=== PATIENT | male | born 1955 | race Caucasian/White ===

== ENCOUNTER 2017-04-25 06:58 | Observation (INO) | payer OTHER ==
[2017-04-23 09:03] LABS: BASOPHILS # (AUTO) 0.1 (0.0-0.1); BASOPHILS % 0.9 % (0.0-1.0); EOSINOPHILS # (AUTO) 0.1 (0.0-0.4); HEMATOCRIT 49.5 % (38.2-49.6); HEMOGLOBIN 16.9 g/dL (14.0-18.0); LYMPHOCYTES # (AUTO) 1.9 (1.0-3.2); LYMPHOCYTES % 23.7 % (18.0-39.1); MEAN CORPUSCULAR HEMOGLOBIN 32.6 pg (28-32); MEAN CORPUSCULAR HGB CONC 34.1 g/dL (31-35); MEAN CORPUSCULAR VOLUME 95.4 fL (81-99); MONOCYTES # (AUTO) 0.8 (0.2-0.8); MONOCYTES % 9.5 % (4.4-11.3); NEUTROPHILS # (AUTO) 5.2 (2.1-6.9); NEUTROPHILS % 64.5 % (38.7-80.0); PLATELET COUNT 264 x10e3/uL (140-360); RED BLOOD COUNT 5.19 x10e6/uL (4.3-5.7); RED CELL DISTRIBUTION WIDTH 13.1 % (11.7-14.4)
[2017-04-23 09:07] LABS: ANION GAP 9.7 mmol/L (8-16); BLOOD UREA NITROGEN 12 mg/dL (7-26); BUN/CREATININE RATIO 14 (6-25); CALCIUM 8.8 mg/dL (8.4-10.2); CARBON DIOXIDE 28 mmol/L (22-29); CHLORIDE 103 mmol/L (98-107); CREATININE, SERUM 0.86 mg/dL (0.72-1.25); EST GLOMERULAR FILTRATION RATE > 60 ML/MIN (60-); GLUCOSE 92 mg/dL (74-118); POTASSIUM 3.7 mmol/L (3.5-5.1); SODIUM 137 mmol/L (136-145)
[~2017-04-25] VITALS: Ht 182.9 cm; Wt 138.3 kg
[~2017-04-25 06:58] MED LIST: CEFAZOLIN SOD 2 GM/D5W 50ML 50 ML IV ONE; COUMADIN5 MG PO; LANSOPRAZOLE30 MG PO; LOSARTAN POTAS100 MG PO; LOSARTAN POTASS25 MG PO; METRONIDAZOLE500 MG PO; PRAVASTATIN SOD10 MG PO; PRAVASTATIN SOD20 MG PO; WARFARIN SODIU2.5 MG PO
[2017-04-25] MEDS ORDERED: BUPIVACAINE HCL 0.5% INJ 30 ML VIAL INJ ONE (07:27)
[2017-04-25] MEDS: DEXTROSE 5%/LACTATED RINGERS 1,000 ML IV SCH ×2 (12:52→20:52)
[2017-04-25] MEDS ORDERED: ONDANSETRON HCL INJ 2 MG/ML VIAL IV PRN (13:00)
[2017-04-25] MEDS ORDERED: HYDROMORPHONE 1MG/1ML INJ IV PRN (13:00)
[2017-04-25] MEDS ORDERED: HYDROMORPHONE 2MG/ML INJ IV PRN (13:45)
[2017-04-25] MEDS ORDERED: FENTANYL CITRATE/PF 100MCG/2 ML INJ ONE ×2 (13:48→19:13)
[2017-04-25] MEDS ORDERED: ACETAMINOPHEN 1000 MG/100 ML 100 ML IV ONE (13:51)
[2017-04-25] MEDS ORDERED: KETOROLAC TROMETHAMINE 30 MG/ML VIAL ONE (13:51)
[2017-04-25] MEDS ORDERED: CEFAZOLIN SOD 2 GM in WATER STERILE 10ML VIAL 10 ML IV SCH (14:00)
[2017-04-25 14:15] VITALS: BP 172/92
[2017-04-25 15:37] VITALS: BP 172/92
[2017-04-25 15:39] VITALS: BP 160/81
--- NOTE | 2017-04-25 15:45 | Operative Report ---
DATE OF PROCEDURE: April 25, 2017 PREOPERATIVE DIAGNOSIS: 1. Gastroesophageal reflux disease. 2. Hiatal hernia. POSTOPERATIVE DIAGNOSIS: 1. Gastroesophageal reflux disease. 1. Hiatal hernia. PROCEDURE: 1. Diagnostic laparoscopy. 2. Laparoscopic repair of hiatal hernia with fundoplication. AUTOMOTIVE PARTS CLERK: GOPI Gabriel ANESTHESIA: General. INDICATIONS AND FINDINGS: The patient is a 61-year-old male with complaints of left upper quadrant abdominal pain. Workup revealed a large hiatal hernia. He also has symptoms of gastroesophageal reflux disease. At surgery patient had a large hiatal hernia containing about half the stomach and a large amount of omentum with no other abnormalities noted. TECHNIQUE: After adequate general endotracheal anesthesia, patient in supine position, the abdomen was prepped and draped in sterile fashion with Bern solution. Above the umbilicus approximately 4 cm left of midline, skin and subcutaneous tissue was infiltrated with 0.5% Marcaine. A transverse incision was made. Abdominal wall was elevated and a Veress needle was introduced. Pneumoperitoneum was then created. A 10 mm trocar and cannula was then passed through this wound. Laparoscopic camera was introduced. Initial laparoscopy revealed liver, lower abdomen appeared normal though mostly obscured by omentum. A 10 mm trocar and cannula was placed right of the midline through the falciform ligament. A 5 mm trocar and cannula was placed left of the midline subxiphoid. A 10 mm trocar and cannula was placed anterior to the axillary line with the costal margin, and a 10 mm trocar and cannula was placed in the left side of the abdomen lateral to the umbilicus. These were all placed under direct vision. With the left lobe of the liver elevated, laparoscopy revealed a large hiatal hernia containing a large portion of the stomach and omentum. This was all delivered into the peritoneal cavity. Approximately half the stomach had herniated through the esophageal hiatus. The lesser omentum was divided with the LigaSure device. The peritoneal attachments to the right side of the hiatus were divided with the LigaSure device. The fundus of the stomach was mobilized by dividing peritoneal attachments and short gastric vessels until it was completely free. Surgery was difficult due to a large amount of omentum and fat obscuring the area of dissection, although as the dissection continued, the entire esophageal hiatus was delineated. Posterior vagus nerve was identified and preserved. Once this dissection was complete, the esophagus, which was very shortened, was encircled with a Dione drain. Esophageal hiatus was then closed posterior to the esophagus with interrupted sutures of 0 Ethibond. At this point, however, attempts to pass the stomach posterior to the esophagus were found to be a possible due to the large amount of omentum in the area and fat and the very shortened esophagus. Because of this, it was decided to do only an anterior fundoplication. The fundus of the stomach was brought anteriorly and sutured to the esophagus to restore the angle of His and to complete approximately 240-degree fundoplication. This was done with interrupted sutures of 0 Ethibond. Care was taken not to injure the vagus nerve. Once this fundoplication was completed, the wound was inspected for hemostasis, which was seen to be adequate. It was irrigated with saline. All fluid aspirated. Inspected once again for hemostasis, which was seen to be adequate. Instruments and cannulas were removed. Pneumoperitoneum was evacuated. Wounds were then closed. Fascia and larger trocar wounds were closed with 0 Vicryl. Skin to all wounds was closed with 4-0 Vicryl in subcuticular fashion and sterile dressing applied to each wound. The patient tolerated the procedure well. Estimated blood loss was 100 mL. There were no complications. All counts were correct. Patient was taken to the recovery room in satisfactory condition. Job#: [id number] EV cc:FELIPE MARCELINO MD
[2017-04-25] MEDS: CEFAZOLIN SOD 2 GM/D5W 50ML 50 ML IV SCH (16:14)
[2017-04-25] MEDS ORDERED: DEXAMETHASONE SOD PHOS INJ 4 MG/ML VIAL ONE (17:47)
[2017-04-25] MEDS ORDERED: GLYCOPYRROLATE INJ 1MG/ 5 ML SYR ONE (17:47)
[2017-04-25] MEDS ORDERED: ACETAMINOPHEN 1000 MG/100 ML IV ONE (17:47)
[2017-04-25] MEDS ORDERED: LIDOCAINE HCL 2% LOCAL INJ 5 ML SDV VIAL INJ ONE (17:47)
[2017-04-25] MEDS ORDERED: NEOSTIGMINE 5 MG/5ML SYR ONE (17:47)
[2017-04-25] MEDS ORDERED: PROPOFOL IV EMULSION 10 MG/ML 20 ML VIAL ONE (17:47)
[2017-04-25] MEDS ORDERED: SEVOFLURANE INHAL SOLN 250 ML PEN BTL ONE (17:47)
[2017-04-25] MEDS ORDERED: ROCURONIUM BROMIDE 10 MG/ML 5ML VIAL ONE (17:47)
[2017-04-25] MEDS ORDERED: ONDANSETRON HCL INJ 2 MG/ML VIAL ONE (17:47)
[2017-04-25] MEDS ORDERED: MIDAZOLAM HCL 2 MG/2 ML VIAL ONE (19:13)
[2017-04-25 20:00] VITALS: BP 135/90
[2017-04-25 21:02] VITALS: BP 135/90
[2017-04-26] VITALS: BP 143/60
[2017-04-26] MEDS: CEFAZOLIN SOD 2 GM/D5W 50ML 50 ML IV SCH (00:59)
[2017-04-26 04:00] VITALS: BP 129/78
[2017-04-26] MEDS: DEXTROSE 5%/LACTATED RINGERS 1,000 ML IV SCH ×2 (05:39→12:41)
[2017-04-26 06:26] LABS: BASOPHILS % 0.3 % (0.0-1.0); EOSINOPHILS % 0.1 % (0.0-6.0); HEMATOCRIT 48.5 % (38.2-49.6); HEMOGLOBIN 16.6 g/dL (14.0-18.0); LYMPHOCYTES # (AUTO) 1.5 (1.0-3.2); LYMPHOCYTES % 13.5 % (18.0-39.1); MEAN CORPUSCULAR HEMOGLOBIN 32.3 pg (28-32); MEAN CORPUSCULAR HGB CONC 34.2 g/dL (31-35); MEAN CORPUSCULAR VOLUME 94.4 fL (81-99); MONOCYTES # (AUTO) 1.2 (0.2-0.8); MONOCYTES % 10.6 % (4.4-11.3); NEUTROPHILS # (AUTO) 8.6 (2.1-6.9); NEUTROPHILS % 75.2 % (38.7-80.0); PLATELET COUNT 234 x10e3/uL (140-360); RED BLOOD COUNT 5.14 x10e6/uL (4.3-5.7); RED CELL DISTRIBUTION WIDTH 13.2 % (11.7-14.4)
[2017-04-26 08:15] VITALS: BP 141/91
[2017-04-26] MEDS ORDERED: NON-FORMULARY MEDICATION (Lansoprazole 30 MG) PO SCH (09:00)
[2017-04-26] MEDS ORDERED: NON-FORMULARY MEDICATION (Pravastatin Sodium 10 MG) PO SCH (09:00)
[2017-04-26] MEDS ORDERED: LOSARTAN POTASSIUM 25 MG TAB PO SCH (09:00)
[2017-04-26 12:03] VITALS: BP 137/93
[2017-04-26 16:00] VITALS: BP 142/94
[2017-04-26] MEDS ORDERED: PRAVASTATIN 20 MG TAB PO SCH (21:00)
[2017-04-27] MEDS ORDERED: PANTOPRAZOLE SOD 40 MG TABEC PO SCH (07:30)
== END 2017-04-26 17:54 | disposition home or self-care (01) ==
LOC: OR 06:58 → IMCU 13:29
PROVIDERS: ADMIT Surgery; ATTEND Surgery
DX: K21.9 Gastro-esophageal reflux disease without esophagitis (principal); K44.9 Diaphragmatic hernia without obstruction or gangrene; Z86.718 Personal history of other venous thrombosis and embolism
CPT/HCPCS: 36415 ×2; 43281; 80048; 85025 ×2; 93005; G0378 ×2; J1100; J1885; J2001; J2250; J2405; J7120

== ENCOUNTER → 2018-01-24 | Outpatient (CLI) | payer OTHER ==
[~2018-01-24] MED LIST changes: -CEFAZOLIN SOD 2 GM/D5W 50ML 50 ML IV ONE
--- NOTE | 2018-01-24 12:37 | Diagnostic Imaging Report ---
PROCEDURE:X-RAY UPPER GI SERIES WITH AIR CONTRAST COMPARISON:CT Chest with contrast 08/06/15; CT Abdomen/pelvis without contrast 03/12/2017. INDICATIONS:HEARTBURN, POST HIATAL HERNIA FINDINGS: The patient was given air crystals, thick barium, and thin barium to drink in upright and prone positions. Multiple images of the esophagus, stomach, and duodenum were obtained. ESOPHAGUS: Predominately primary contractions are noted with some secondary contractions. No evidence of dysmotility, mucosal irregularity or stricture. REFLUX: Severe reflux is noted to above the level of the aortic arch. HIATAL HERNIA: Small hiatal hernia. STOMACH: No evidence of ulcer or mass. Normal fold thickening DUODENUM: No evidence of ulcer or mass. Normal duodenal sweep. CONCLUSION: Severe gastroesophageal reflux. Small hiatal hernia. Dictated by: AMNA AVILA M.D. on 01/24/2018 at 9:15 Electronically approved by: AMNA AVILA M.D. on 01/24/2018 at 9:15
== END ==
LOC: DX 07:25
PROVIDERS: ATTEND Internal Medicine
DX: K21.0 Gastro-esophageal reflux disease with esophagitis (principal)
CPT/HCPCS: 74246

== ENCOUNTER 2018-07-12 11:18 | Inpatient (IN) | payer OTHER ==
[~2018-07-12] VITALS: Ht 182.9 cm; Wt 140.6 kg
--- OUTSIDE RECORDS SUMMARY | 2018-07-12 11:20 | XMS REPORT ---
Author Author [facility] Address Unknown Phone Unavailable Care Team Providers Care Resin Coater Name Role Phone FELIPE MARCELINO Unavailable Unavailable Problems This patient has no known problems. Allergies, Adverse Reactions, Alerts This patient has no known allergies or adverse reactions. Medications This patient has no known medications. Results Test Description Test Time Test Comments Text Results Atomic Results Result Comments UPPER GI W/AIR CONTR 2018-01-24 09:15:00 [place] [address] Patient Name: ED COLLIER JR MR #: [id number] : 1955 Age/Sex: 62/M Req #: [id number] [facility] Physician: Ordered by: FELIPE MARCELINO MD Report #: [id number] Location: DX Room/Bed: Procedure: [id number] DX/UPPER GI W/AIR CONTR Exam Date: 01/24/18 Exam Time: 0810 REPORT STATUS: Signed PROCEDURE: X-RAY UPPER GI SERIES WITH AIR CONTRAST COMPARISON: CT Chest with contrast 08/06/15; CT Abdomen/pelvis without contrast 03/12/2017. INDICATIONS: HEARTBURN, POST HIATAL HERNIA FINDINGS: The patient was given air crystals, thick barium, and thin barium to drink in upright and prone positions. Multiple images of the esophagus, stomach, and duodenum were obtained. ESOPHAGUS: Predominately primary contractions are noted with some secondary contractions. No evidence of dysmotility, mucosal irregularity or stricture. REFLUX: Severe reflux is noted to above the level of the aortic arch. HIATAL HERNIA: Small hiatal hernia. STOMACH: No evidence of ulcer or mass. Normal fold thickening DUODENUM: No evidence of ulcer or mass. Normal duodenal sweep. CONCLUSION: Severe gastroesophageal reflux. Small hiatal hernia. Dictated by: AMNA AVILA M.D. on 01/24/2018 at 9:15 Electronically approved by: AMNA AVILA M.D. on 01/24/2018 at 9:15 Dictated By: AMNA AVILA MD 4 Transcribed By: LENCHO on 01/24/18914 COPY TO: FELIPE MARCELINO MD CT ABDOMEN/PELVIS WO [place] [address] Patient Name: ED COLLIER JR MR #: [id number] : 1955 Age/Sex: 61/M [id number] Req #: [id number] Adm Physician: Ordered by: FELIPE MARCELINO MD Report #: [id number] Location: CT Room/Bed: Procedure: [id number] CT/CT ABDOMEN/PELVIS WO Exam Date: 03/12/17 Exam Time: 1235 REPORT STATUS: Signed PROCEDURE: CT ABDOMEN AND PELVIS WITHOUT CONTRAST TECHNIQUE: The abdomen and pelvis were scanned utilizing a multidetector helical scanner from the diaphragm to the lesser trochanter. Gastroview oral contrast was administered. No IV contrast was administered because of physician request. Coronal and sagittal multiplanar reformations were obtained. COMPARISON: None. INDICATIONS: ABDOMINAL PAIN FINDINGS: ABSENCE OF INTRAVENOUS CONTRAST DECREASES SENSITIVITY FOR DETECTION OF FOCAL LESIONS AND VASCULAR PATHOLOGY. LOWER THORAX: Mild coronary artery and aortic atherosclerotic calcifications. HEPATOBILIARY: No focal hepatic lesions. No biliary ductal dilatation. No radiopaque gallstones. SPLEEN: No splenomegaly. PANCREAS: No focal masses or ductal dilatation. ADRENALS: No adrenal nodules. KIDNEYS/URETERS: No hydronephrosis or stones. Exophytic 1 cm inferior left renal and 1.4 cm inferomedial right renal hypodensities measure fluid density and likely represent cysts. PELVIC ORGANS/BLADDER: Unremarkable. PERITONEUM / RETROPERITONEUM: No free air or fluid. LYMPH NODES: No lymphadenopathy. VESSELS: Limited evaluation without intravenous contrast. Mild scattered atherosclerotic calcifications. No abdominal aortic aneurysm. GI TRACT: Large hiatal hernia contains a large portion of the stomach. No distention or wall thickening. The appendix is normal. Scattered colonic diverticula without evidence of diverticulitis. BONES AND SOFT TISSUES: Small fat-containing inguinal hernias. Gluteal calcifications likely representing injection granulomas. No acute or aggressive osseous lesions. IMPRESSION: 1. Stable large hiatal hernia. 2. Otherwise, no CT findings to explain abdominal pain. Dictated by: Jose A West M.D. on 03/12/2017 at 13:36 Electronically approved by: Jose A West M.D. on 03/12/2017 at 13:40 Dictated By: JOSE A WEST MD [id number] Transcribed By: LENCHO on 03/12/17 1340 COPY TO: FELIPE MARCELINO MD
[2018-07-12 12:14] LABS: BASOPHILS % 0.4 % (0.0-1.0); EOSINOPHILS # (AUTO) 0.2 (0.0-0.4); EOSINOPHILS % 2.3 % (0.0-6.0); HEMATOCRIT 52.7 % (38.2-49.6); HEMOGLOBIN 17.7 g/dL (14.0-18.0); LYMPHOCYTES # (AUTO) 1.5 (1.0-3.2); LYMPHOCYTES % 19.9 % (18.0-39.1); MEAN CORPUSCULAR HGB CONC 33.6 g/dL (31-35); MEAN CORPUSCULAR VOLUME 95.3 fL (81-99); MONOCYTES # (AUTO) 0.8 (0.2-0.8); MONOCYTES % 10.7 % (4.4-11.3); NEUTROPHILS # (AUTO) 5.1 (2.1-6.9); NEUTROPHILS % 66.3 % (38.7-80.0); PLATELET COUNT 278 x10e3/uL (140-360); RED BLOOD COUNT 5.53 x10e6/uL (4.3-5.7); RED CELL DISTRIBUTION WIDTH 13.8 % (11.7-14.4)
[2018-07-12 12:23] LABS: INR 2.56; PROTHROMBIN TIME 28.2 seconds (11.9-14.5)
[2018-07-12 12:24] LABS: PARTIAL THROMBOPLASTIN TIME 47.8 seconds (23.8-35.5)
[2018-07-12 12:32] LABS: ALANINE AMINOTRANSFERASE 22 IU/L (0-55); ALBUMIN 3.4 g/dL (3.5-5.0); ALBUMIN/GLOBULIN RATIO 0.9 (0.8-2.0); ALKALINE PHOSPHATASE 58 IU/L (40-150); ANION GAP 11.5 mmol/L (8-16); BLOOD UREA NITROGEN 12 mg/dL (7-26); BUN/CREATININE RATIO 14 (6-25); CALCIUM 9.3 mg/dL (8.4-10.2); CARBON DIOXIDE 27 mmol/L (22-29); CHLORIDE 100 mmol/L (98-107); CREATININE, SERUM 0.88 mg/dL (0.72-1.25); EST GLOMERULAR FILTRATION RATE > 60 ML/MIN (60-); GLUCOSE 84 mg/dL (74-118); POTASSIUM 3.5 mmol/L (3.5-5.1); SODIUM 135 mmol/L (136-145)
[2018-07-12] MEDS ORDERED: ONDANSETRON HCL INJ 2MG/ML 2ML 2 MG/ML VIAL IV PRN (14:00)
[2018-07-12] MEDS ORDERED: MORPHINE SULFATE 2 MG/ML SYR 1ML IV PRN (14:00)
[2018-07-12 14:29] LABS: BILIRUBIN,URINE NEGATIVE (NEGATIVE); CLARITY,URINE CLEAR (CLEAR); COLOR,URINE YELLOW (YELLOW); KETONES,URINE NEGATIVE (NEGATIVE); LEUKOCYTE ESTERASE ,URINE NEGATIVE (NEGATIVE); NITRITE,URINE NEGATIVE (NEGATIVE); PROTEIN,URINE DIPSTICK NEGATIVE (NEGATIVE); URINE UROBILINOGEN 0.2 mg/dL (0.2 - 1)
[2018-07-12] MEDS ORDERED: MORPHINE SULFATE INJ 4 MG/ML INJ 1ML IV PRN (14:30)
[2018-07-12 14:40] LABS: BACTERIA,URINE RARE /HPF; MUCUS,URINE FEW (RARE); RBC,URINE 0-5 /HPF (0-5); WBC,URINE (MAN) 0-5 /HPF (0-5)
[2018-07-12] MEDS: SODIUM CHLORIDE 0.9% 1000ML 1,000 ML IV SCH (14:49)
[2018-07-12] MEDS: PIPER-TAZ 3.375 GM 50 ML IV SCH ×2 (14:56→21:56)
[2018-07-12] MEDS: VANCOMYCIN 1GM/NS 250 ML 250 ML IV SCH (16:01)
[2018-07-12] MEDS ORDERED: LOSARTAN POTAS100 MG PO (17:35)
[2018-07-12 17:45] VITALS: BP 154/95
--- NOTE | 2018-07-12 17:45 | NUR ---
RECEIVED PATIENT FROM ER TO ROOM 289 AT 1725, HE IS IN STABLE CONDITION. NO ACUTE DISTRESS NOTED. IV LINE PATENT. PATIENT ORIENTED TO ROOM. CALL LIGHT WITHIN REACH. BED IN THE LOWEST POSITION.
[2018-07-12 18:09] VITALS: BP 154/95
--- NOTE | 2018-07-12 19:10 | NUR ---
REPORT GIVEN TO ONCOMING NURSE, PATIENT IS RESTING IN BED. NO ACUTE DISTRESS NOTED. CALL LIGHT WITHIN REACH. BED IN THE LOWEST POSITION.
[2018-07-12 20:00] VITALS: BP 119/63
[2018-07-13] VITALS (8 sets, daily range): BP systolic 107–138; BP diastolic 57–82
[2018-07-13] MEDS: VANCOMYCIN 1GM/NS 250 ML 250 ML IV SCH ×2 (02:12→15:20)
[2018-07-13] MEDS: SODIUM CHLORIDE 0.9% 1000ML 1,000 ML IV SCH ×3 (02:12→23:41)
[2018-07-13] MEDS: PIPER-TAZ 3.375 GM 50 ML IV SCH ×4 (04:00→21:09)
--- NOTE | 2018-07-13 04:56 | NUR ---
Patient laying in bed with HOB slightly elevated. No distress noted. No SOB noted. Patient in stable condition. Will continue to monitor.
--- NOTE | 2018-07-13 06:50 | NUR ---
RECEIVED PATIENT RESTING IN BED. NO ACUTE DISTRESS NOTED. DENIES PAIN OR DISCOMFORT AT THIS TIME. CALL LIGHT WITHIN REACH. BED IN THE LOWEST POSITION.
--- NOTE | 2018-07-13 06:50 | NUR ---
DR. MARCELINO ROUNDING ON PATIENT. ASKED IF ORDER FOR PT/INR NEEDED SINCE PATIENT IS ON COUMADIN, PER MD NO ORDER PATIENT'S INR IS WELL CONTROLLED.
[2018-07-13 07:05] LABS: BASOPHILS % 0.4 % (0.0-1.0); EOSINOPHILS # (AUTO) 0.1 (0.0-0.4); EOSINOPHILS % 1.3 % (0.0-6.0); HEMATOCRIT 50.8 % (38.2-49.6); HEMOGLOBIN 17.1 g/dL (14.0-18.0); LYMPHOCYTES # (AUTO) 1.5 (1.0-3.2); LYMPHOCYTES % 18.7 % (18.0-39.1); MEAN CORPUSCULAR HGB CONC 33.7 g/dL (31-35); MEAN CORPUSCULAR VOLUME 95.1 fL (81-99); MONOCYTES # (AUTO) 0.8 (0.2-0.8); MONOCYTES % 9.9 % (4.4-11.3); NEUTROPHILS # (AUTO) 5.5 (2.1-6.9); NEUTROPHILS % 69.2 % (38.7-80.0); PLATELET COUNT 250 x10e3/uL (140-360); RED BLOOD COUNT 5.34 x10e6/uL (4.3-5.7); RED CELL DISTRIBUTION WIDTH 13.7 % (11.7-14.4)
[2018-07-13] MEDS: PANTOPRAZOLE SOD 40 MG TABEC PO SCH (07:06)
[2018-07-13] MEDS ORDERED: ACETAMINOPHEN 325 MG TAB PO PRN (07:15)
[2018-07-13 07:17] LABS: ANION GAP 11.7 mmol/L (8-16); BLOOD UREA NITROGEN 8 mg/dL (7-26); BUN/CREATININE RATIO 10 (6-25); CALCIUM 8.5 mg/dL (8.4-10.2); CARBON DIOXIDE 23 mmol/L (22-29); CHLORIDE 105 mmol/L (98-107); CREATININE, SERUM 0.78 mg/dL (0.72-1.25); EST GLOMERULAR FILTRATION RATE > 60 ML/MIN (60-); GLUCOSE 86 mg/dL (74-118); POTASSIUM 3.7 mmol/L (3.5-5.1); SODIUM 136 mmol/L (136-145)
--- NOTE | 2018-07-13 12:42 | History and Physical ---
REASON FOR ADMISSION: Abdominal wall cellulitis. HISTORY OF PRESENT ILLNESS: The patient is a 62-year-old gentleman, who was seen in the office for abdominal wall cellulitis, given some Rocephin and p.o. antibiotics, but unfortunately within 24 hours, the area of erythema got much larger, so he came to the emergency room and he has been admitted for further treatment. PAST MEDICAL HISTORY: Significant for hypertension, history of DVT, and reflux disease. MEDICATIONS: See MAR. ALLERGIES: NONE. SOCIAL HISTORY: Nondrinker, nonsmoker, retired, lives at home with his . FAMILY HISTORY: . PHYSICAL EXAMINATION: VITAL SIGNS: Temperature 98.6, pulse 92, blood pressure 107/57, and sats 93%. GENERAL: No apparent distress. NECK: Supple. CARDIOVASCULAR: Regular rate and rhythm. LUNGS: Clear to auscultation bilaterally. ABDOMEN: Good bowel sounds. Soft, nontender. On the abdominal wall, he has an area of approximately 20 cm of erythema that is nontender. EXTREMITIES: No clubbing or cyanosis. NEUROLOGIC: Nonfocal. ASSESSMENT AND PLAN: 1. Abdominal wall cellulitis. Continue with IV antibiotics. 2. Hypertension. Continue his home medications. 3. Reflux disease. Continue with his home medication. 4. History of deep vein thrombosis. Continue with his Coumadin and his INR is therapeutic. Please see hospital chart for full details. MD VIRIDIANA Kent/JACQUELINE /[id number]
--- NOTE | 2018-07-13 19:06 | NUR ---
REPORT GIVEN TO ONCOMING NURSE. PATIENT IS RESTING IN BED, NO ACUTE DISTRESS NOTED. CALL LIGHT WITHIN REACH. BED IN THE LOWEST POSITION.
--- NOTE | 2018-07-13 19:27 | NUR ---
PT IS RESTING IN BED. NO RESPIRATORY DISTRESS NOTED. BED IN THE LOWEST POSITION, LOCKED, AND CALL LIGHT WITHIN REACH. WILL CONTINUE TO MONITOR.
[2018-07-13] MEDS: PRAVASTATIN 20 MG TAB PO SCH (21:00)
[2018-07-13] MEDS: WARFARIN SOD 2.5 MG TAB PO SCH (21:00)
[2018-07-13] MEDS: LOSARTAN POTASSIUM 100 MG TAB PO SCH (21:00)
[2018-07-14] VITALS (7 sets, daily range): BP systolic 115–151; BP diastolic 61–86
[2018-07-14] MEDS: VANCOMYCIN 1GM/NS 250 ML 250 ML IV SCH ×2 (01:49→14:25)
[2018-07-14] MEDS: PIPER-TAZ 3.375 GM 50 ML IV SCH ×4 (03:32→21:32)
--- NOTE | 2018-07-14 04:34 | NUR ---
PER DR MARCELINO PT CAN TAKE HIS OWN HOME MEDICATION. WILL CONTINUE TO MONITOR.
[2018-07-14] MEDS: PANTOPRAZOLE SOD 40 MG TABEC PO SCH (07:30)
--- NOTE | 2018-07-14 16:00 | NUR ---
WOUND CARE CONSULT: THIS IS A 62 YEAR OLD MALE PATIENT ADMITTED TO [facility] FOR ABSCESS AND CELLULITIS RIGHT ABDOMINAL WALL. HEAD TO TOE SKIN ASSESSMENT PERFORMED. PATIENT HAS A WOUND TO THE RIGHT LOWER ABDOMINAL QUADRANT MEASURING 1X1.2X0.2CM, WITH PERIWOUND DISCOLORATION WITH SLIGHT INDURATION NOTED. PATIENT STATED THAT THE WOUND WAS LANCED IN THE ER AND DRAINED. PATIENT HAS A RASH NOTED TO HIS UPPER BACK AND UPPER CHEST NEAR STERNAL REGION. 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 PATIENT HAS FLAIR UPS FROM TIME TO TIME BUT HE DENIES ANY ITCHING AT THIS TIME. LABS: WBC7.87 ALB3.4 URINE CULTURE PENDING. WOUND CULTURE PENDING. RECOMMENDATION: -APPLY ALTERNATING PRESSURE RELIEF MATTRESS. -APPLY BILATERAL HEEL PROTECTORS WITH PILLOW SUSPENSION. -ENCOURAGE PATIENT TO TURN EVERY 2 HOURS AND PRN. -NURSING TO CLEAN RIGHT ABDOMINAL QUADRANT WOUND WITH NS, PAT DRY, APPLY SILVASORB GEL, 4X4 GAUZE AND SECURE WITH TAPE; CHANGE DAILY AND PRN. THANK YOU FOR THIS WOUND CARE CONSULT. Addendum: 07/15/18 at 0859 by Mallorie Gomez RN Amended: Links added.
[2018-07-14 17:37] LABS: INR 2.82; PROTHROMBIN TIME 30.4 seconds (11.9-14.5)
--- NOTE | 2018-07-14 19:35 | NUR ---
RECEIVED PT SITTING ON THE CHAIR AOX3 . RESPIRATIONS ARE EVEN AND UNLABORED .SKIN WARM AND DRY TO TOUCH .FAMILY AT THE BEDSIDE .CALL LIGHT WITH IN REACH .CONTINUE TO MONITOR
[2018-07-14] MEDS: PRAVASTATIN 20 MG TAB PO SCH (21:00)
[2018-07-14] MEDS ORDERED: WARFARIN SOD 5 MG TAB PO SCH (21:00)
[2018-07-14] MEDS: LOSARTAN POTASSIUM 100 MG TAB PO SCH (21:00)
[2018-07-14] MEDS: WARFARIN SOD 2.5 MG TAB PO SCH (21:00)
[2018-07-14] MEDS: SODIUM CHLORIDE 0.9% 1000ML 1,000 ML IV SCH (21:25)
[2018-07-15] VITALS (9 sets, daily range): BP systolic 108–157; BP diastolic 63–90
[2018-07-15] MEDS: PIPER-TAZ 3.375 GM 50 ML IV SCH ×4 (03:00→21:00)
[2018-07-15] MEDS: VANCOMYCIN 1GM/NS 250 ML 250 ML IV SCH ×2 (04:00→15:22)
--- NOTE | 2018-07-15 06:17 | NUR ---
PT RESTED DURING THE NIGHT AND DENIES PAIN .CALL LIGHT WITH IN REACH .CONTINUE TO MONITOR
[2018-07-15] MEDS: SODIUM CHLORIDE 0.9% 1000ML 1,000 ML IV SCH ×3 (07:04→09:33)
[2018-07-15] MEDS: PANTOPRAZOLE SOD 40 MG TABEC PO SCH (07:30)
[2018-07-15] MEDS ORDERED: SILVER ANTIMICROBIAL WOUND GEL 45ML TP SCH (09:00)
--- NOTE | 2018-07-15 20:17 | NUR ---
RECEIVED PT WALKING IN THE ROOM AOX3 . NO ACUTE DISTRESS NOTED DENIES PAIN .PT IS NPO AFTER MIDNIGHT FOR SURGERY .SKIN WARM AND DRY TO TOUCH .FAMILY AT THE BEDSIDE .CALL LIGHT WITH IN REACH .CONTINUE TO MONITOR
[2018-07-15] MEDS: LOSARTAN POTASSIUM 100 MG TAB PO SCH (21:00)
[2018-07-15] MEDS: WARFARIN SOD 2.5 MG TAB PO SCH (21:00)
[2018-07-15] MEDS: PRAVASTATIN 20 MG TAB PO SCH (21:00)
[2018-07-16] VITALS: BP 142/78
[2018-07-16] MEDS: VANCOMYCIN 1GM/NS 250 ML 250 ML IV SCH (02:02)
[2018-07-16] MEDS: PIPER-TAZ 3.375 GM 50 ML IV SCH (03:00)
[2018-07-16 04:00] VITALS: BP 111/80
--- NOTE | 2018-07-16 05:17 | NUR ---
PT RESTING DENIES PAIN NO ACUTE DISTRESS NOTED.CALL LIGHT WITH IN REACH .CONTINUE TO MONITOR
[2018-07-16 06:21] LABS: INR 2.96; PROTHROMBIN TIME 31.6 seconds (11.9-14.5)
--- NOTE | 2018-07-16 07:10 | NUR ---
REPORT GIVEN TO THE ONCOMING NURSE .
[2018-07-16 07:45] VITALS: BP 123/77
--- NOTE | 2018-07-16 07:49 | NUR ---
PATIENT REFUSED MORNING MEDICATIONS
--- NOTE | 2018-07-16 07:50 | NUR ---
PATIENT IN STABLE CONDITION WITH NO S/S OF RESPIRATORY DISTRESS. NO PAIN VOICED. DRESSING TO RIGHT LOWER QUADRANT IS INTACT AND DRY. IV FLUIDS INFUSING. CALL LIGHT IS WITHIN REACH, INSTRUCTED TO CALL FOR ASSISTANCE NEEDED.
[2018-07-16] MEDS ORDERED: ONDANSETRON HCL 4 MG ORAL DISINTEGRATING TAB PO PRN (09:00)
--- NOTE | 2018-07-16 09:34 | NUR ---
SPOKE WITH DR. MARCELINO REGARDING PRESCRIPTIONS UPON DISCHARGE- ORDER NO PRESCRIPTIONS NEEDED.
--- NOTE | 2018-07-16 11:22 | NUR ---
PATIENT DISCHARGE HOME- PATIENT OFF THE UNIT AT 0953 PER WHEELCHAIR ACCOMPANIED BY PCT TO THE FRONT LOBBY. PATIENT IN STABLE CONDITION WITH NO S/S OF RESPIRATORY DISTRESS. NO PAIN VOICED. DRESSING TO RIGHT LOWER ABD IS DRY AND INTACT. IV REMOVED WITH TIP INTACT. DISCHARGE TEACHING, INSTRUCTIONS, AND MEDICATIONS GIVEN TO THE PATIENT. ALL PERSONAL ITEMS TAKEN WITH THE PATIENT AND HIS .
--- NOTE | 2018-07-16 19:46 | Discharge Summary ---
DISCHARGE DIAGNOSIS: Abdominal wall cellulitis. HISTORY OF PRESENT ILLNESS AND HOSPITAL COURSE: See hospital chart for full details. The patient is a 62-year-old gentleman, who failed outpatient antibiotic therapy for abdominal wall cellulitis, was brought and placed on IV antibiotics, which made a significant improvement, but at the time of discharge So, he was switched over to p.o. antibiotics and will follow up in two days with me. Please see hospital chart for full details. MD VIRIDIANA Kent/JACQUELINE /[id number]
== END 2018-07-16 10:01 | disposition home or self-care (01) | DRG 603 ==
LOC: ER 11:18 → ERHOLD 14:13 → MED/SURG3 17:27
PROVIDERS: ADMIT Internal Medicine; ATTEND Internal Medicine
DX: L03.311 Cellulitis of abdominal wall (principal); Z68.41 Body mass index [BMI] 40.0-44.9, adult; E66.01 Morbid (severe) obesity due to excess calories; Z86.718 Personal history of other venous thrombosis and embolism; Z79.01 Long term (current) use of anticoagulants; I10 Essential (primary) hypertension; K21.9 Gastro-esophageal reflux disease without esophagitis
CPT/HCPCS: 36415; 80048; 80053; 80202; 81001; 85025; 85610; 85730; 87071; 87086; 87205; 93005; 99284; J2543; J3370; J7030

== ENCOUNTER 2018-07-24 19:48 | Emergency (ER) | payer OTHER ==
[~2018-07-24] VITALS: Ht 183.5 cm; Wt 140.6 kg
[2018-07-25 00:59] VITALS: BP 144/95
== END 2018-07-25 01:06 | disposition home or self-care (01) ==
LOC: ER 19:48
DX: R07.89 Other chest pain (principal); I10 Essential (primary) hypertension; Z86.718 Personal history of other venous thrombosis and embolism
CPT/HCPCS: 93005; 99282

== ENCOUNTER → 2018-09-23 | Outpatient (CLI) | payer OTHER | LOC: MRI 07:24 | PROVIDERS: ATTEND Internal Medicine | DX: M54.16 Radiculopathy, lumbar region (principal) ==

== ENCOUNTER → 2019-03-05 | Day surgery (SDC) | payer OTHER ==
[~2019-03-05] MED LIST changes: +FENTANYL CITRATE/PF 100MCG/2 ML INJ ONE; +LIDOCAINE HCL 2% LOCAL INJ 5 ML SDV VIAL INJ ONE; +PROPOFOL IV EMULSION 10 MG/ML 20 ML VIAL ONE
[2019-03-05 07:29] LABS: INR 0.91; PROTHROMBIN TIME 12.7 seconds (11.9-14.5)
[2019-03-05 07:30] LABS: PARTIAL THROMBOPLASTIN TIME 29.2 seconds (23.8-35.5)
[2019-03-05 07:30] LABS: BASOPHILS % 0.3 % (0.0-1.0); EOSINOPHILS % 0.1 % (0.0-6.0); HEMATOCRIT 51.4 % (38.2-49.6); HEMOGLOBIN 17.4 g/dL (14.0-18.0); LYMPHOCYTES # (AUTO) 1.6 (1.0-3.2); LYMPHOCYTES % 17.3 % (18.0-39.1); MEAN CORPUSCULAR HEMOGLOBIN 31.6 pg (28-32); MEAN CORPUSCULAR HGB CONC 33.9 g/dL (31-35); MEAN CORPUSCULAR VOLUME 93.5 fL (81-99); MONOCYTES # (AUTO) 0.9 (0.2-0.8); MONOCYTES % 8.9 % (4.4-11.3); NEUTROPHILS # (AUTO) 6.9 (2.1-6.9); NEUTROPHILS % 72.7 % (38.7-80.0); PLATELET COUNT 234 x10e3/uL (140-360); RED CELL DISTRIBUTION WIDTH 15.7 % (11.7-14.4)
[2019-03-05 09:23] VITALS: BP 150/98
== END | disposition home or self-care (01) ==
LOC: OR 05:50
PROVIDERS: ATTEND Internal Medicine Gastroenterology
DX: Z12.11 Encounter for screening for malignant neoplasm of colon (principal); K57.30 Diverticulosis of large intestine without perforation or abscess without bleeding; K64.8 Other hemorrhoids; K21.9 Gastro-esophageal reflux disease without esophagitis; Z71.3 Dietary counseling and surveillance; I10 Essential (primary) hypertension; E66.01 Morbid (severe) obesity due to excess calories; Z01.810 Encounter for preprocedural cardiovascular examination; Z79.02 Long term (current) use of antithrombotics/antiplatelets; Z68.41 Body mass index [BMI] 40.0-44.9, adult
CPT/HCPCS: 36415; 45378; 85025; 85610; 85730; 93005; J2001; J2704; J3010